=== PATIENT | male | born 1960 | race Caucasian/White ===

== ENCOUNTER → 2017-06-14 | Outpatient (CLI) | payer OTHER ==
--- NOTE | 2017-06-14 09:05 | RAD ---
Indication:Possible left upper quadrant mass Grayscale images of the abdomen were obtained. Comparison none Liver:No focal mass is seen in the visualized liver. Gallbladder:Normal. The common bile duct diameter of approximately 3 mm is also normal Spleen:Normal Pancreas:The partially visualized. That portion of the pancreas which is seen appeared normal but much of the pancreas was obscured Kidneys:Both kidneys measure approximately 13 cm in length. There are multiple cysts seen associated with both kidneys. The appearance is suggestive of polycystic kidney disease. Clinical correlation advised. The largest right cyst measures approximately 6 cm and the largest left approximately 16. Abdominal aorta and IVC:The IVC was poorly visualized and largely obscured. The mid and distal abdominal aorta appeared normal. The more proximal abdominal aorta was obscured Ancillary findings:None Impression:Multiple renal cysts. The appearance is suggestive of polycystic kidney disease. Clinical correlation advised. Inferior vena cava and pancreas partially obscured
== END | disposition home or self-care (01) ==
LOC: US 08:04
PROVIDERS: ATTEND Internal Medicine
DX: N28.1 Cyst of kidney, acquired (principal)
CPT/HCPCS: 76700